=== PATIENT | male | born 1935 | race Caucasian/White ===

== ENCOUNTER 2016-11-30 08:17 | Emergency (ER) | payer OTHER ==
[2016-11-30 08:34] VITALS: RESP 18; TEMP 98.2; O2SAT 95
--- NOTE | 2016-11-30 08:47 | EDPHY ---
H & P Stated Complaint: cough and freq urination since last pm Time Seen by Provider: 11/30/16 08:33 HPI/ROS: CHIEF COMPLAINT: Up all night, frequent urination, cough HISTORY OF PRESENT ILLNESS: This is a 81-year-old gentleman, very pleasant, presenting with his with concerns regarding a cough which started yesterday. Patient states he was up all night last night with frequent urination which is unusual for him as well as a cough. He reports feeling short of breath when he laid down flat. He has had a cough for 24 hours. No sputum production. Patient describes shortness of breath only when lying flat. No dyspnea on exertion. No chest pain. Recently flew here from [place], and also had a flight from [place] earlier in the week. No upper respiratory infection symptoms. No runny nose. Her possibly a slight hoarse voice. No fever. No sputum production. No hematuria. No dysuria. No urinary tension. No vomiting or diarrhea. No headache or lightheadedness. REVIEW OF SYSTEMS: Aside from elements discussed in the HPI, a comprehensive 10-point review of systems was reviewed and is negative. PAST MEDICAL HISTORY: Hypertension. Prostate cancer with ablation. Denies diabetes. No history of coronary artery disease. No history of PEs. Noted to be bradycardic SOCIAL HISTORY: Here with his . VITAL SIGNS Reviewed by me. GENERAL: Well-developed, well-nourished, pleasant. No visible respiratory distress. Occasional dry cough. HEENT: Atraumatic. Eyes: No icterus, no injection. Mouth: moist mucous membranes. No erythema or lesions. Neck: supple with no adenopathy. LUNGS: Clear to auscultation bilaterally, no wheezes, rhonchi or rales. CARDIAC: Bradycardic. Slightly irregular. No murmurs. ABDOMEN: Soft, nontender, nondistended, bowel sounds normal. BACK: No CVA tenderness. EXTREMITIES: No trauma. No edema. Range of motion is normal throughout. NEURO: Alert and oriented, grossly nonfocal. SKIN: Warm and dry, no rash. PSYCHIATRIC: Normal mentation, no agitation. - Personal History Current Tetanus Diphtheria and Acellular Pertussis (TDAP): Yes - Medical/Surgical History Hx Asthma: No Hx Chronic Respiratory Disease: No Hx Diabetes: No Hx Cardiac Disease: No Hx Renal Disease: No Hx Cirrhosis: No Hx Alcoholism: No Hx HIV/AIDS: No Hx Splenectomy or Spleen Trauma: No Other PMH: Prostate ca ablation. HTN - Social History Smoking Status: Former smoker Constitutional: Initial Vital Signs Temperature (C) 36.8 C 11/30/16 08:28 Heart Rate 50 L 11/30/16 08:28 Respiratory Rate 18 11/30/16 08:28 Blood Pressure 154/73 H 11/30/16 08:28 O2 Sat (%) 95 11/30/16 08:28 O2 Delivery Mode Room Air Allergies/Adverse Reactions: No Known Allergies Allergy (Unverified 11/30/16 08:34) Home Medications: Medication Instructions Recorded Diovan 11/30/16 Medical Decision Making - Diagnostics EKG Interpretation: 12-LEAD EKG: Please see the full report in [facility]. My interpretation: Sinus rhythm, multiple PVCs. Imaging Results: Imaging Impressions Chest X-Ray 11/30/16 08:37 Impression: 1. Hazy increased markings right suprahilar region possibly from focus of pneumonitis. 2. Prominent interstitial markings left base. Rule out interstitial infiltrate versus fibrotic streaks. Chest/Thorax CTA 11/30/16 09:48 Impression: 1. No evidence of pulmonary embolus using CT protocol. 2. Tiny probably benign bilateral small pulmonary nodules as detailed above. Consider follow-up noncontrast CT the chest in 12 months to confirm stability and benign features. 3. Possible dilatation of the left renal collecting system versus peripelvic cysts incompletely visualized. If indicated, consider CT abdomen and pelvis. 4. Mild enlargement of the left atrium and left ventricle. Findings discussed with Yeimi Mccormack MD at 11:00 hour, 11/30/2016. Abdomen/Pelvis CT 11/30/16 11:16 Impression: 1. No evidence of urinary tract calculus. Peripelvic cysts are seen associated with the left kidney. 2. No significant abnormality identified within the abdomen and pelvis. 3. Thickened bladder wall with trabeculations and diverticula. There is associated enlarged prostate. Consider bladder outlet obstruction with thickened bladder wall versus cystitis. Findings discussed with Yeimi Mccormack MD at 11:48 hour, 11/30/2016. Imaging: I viewed and interpreted images myself ED Course/Re-evaluation: 81-year-old gentleman presenting with cough as well as frequent urination. Patient describes being unable to sleep well last night secondary to coughing, shortness of breath when lying flat, and frequent urination. No significant infectious symptomatology. Patient's evaluation emergency department included the following: EKG demonstrating sinus rhythm with frequent PVCs. Patient's heart rate is in the mid 50s. CBC and chemistries largely unremarkable. Troponin 0.014. BNP elevated at 1940. Chest x-ray shows no pneumonia, no cardiomegaly, no pulmonary congestion. Patient did have a elevated D-dimer and underwent CT scanning of the chest. No pulmonary embolism. No interstitial edema. Left kidney was visualized on the CT scan of the chest with possibility of obstruction versus a simple cyst. Patient does tell me he has had kidney stones in the past. He has no flank pain on examination however he was having frequent urination all last night. He was sent for CT abdomen pelvis to further evaluate this kidney finding. CT scan abdomen pelvis demonstrates peripelvic cysts, large prostate, thickened bladder wall. This may be consistent with cystitis versus bladder outlet obstruction. Patient was re-examined. He continues with and very occasional cough. Seems to have developed a slight runny nose at this point. Daughters and are at the bedside. Held a long discussion with the patient and his family regarding the evaluation. The understand that he needs follow-up at [facility] within the next 1-2 days for further evaluation of the cough, slight orthopnea, and mildly elevated BNP. Currently there is no signs of peripheral edema and no pulmonary edema noted on a chest x-ray or CT scan of the chest. Patient also understands the need to follow up with Urology for the frequent urination. No overt signs of urinary tract infection in the patient's urinalysis. Will send for culture but will not start antibiotics. Patient understands the need for follow-up with Urology. Discussed the possibility of an early URI developing. Stressed the importance of [id number] medications as well as plenty of fluid and sleep. If patient develops a fever, worsening cough, worsening shortness of breath, peripheral edema, chest pain, urinary complaints worsening, dysuria, back pain, or the hematuria he will return to the emergency department. Differential Diagnosis: Differential diagnosis for the patient's shortness of breath was considered including but not limited to pulmonary infectious processes, COPD exacerbation, pulmonary emboli, pulmonary edema, congestive heart failure, and cardiac causes. - Data Points Laboratory Results: Laboratory Results 11/30/16 09:00 11/30/16 09:00 11/30/16 11/30/16 11/30/16 09:35 09:00 09:00 WBC RBC Hgb Hct MCV MCH MCHC RDW Plt Count MPV Neut % (Auto) Lymph % (Auto) [place] % (Auto) Eos % (Auto) Baso % (Auto) Nucleat RBC Rel Count Absolute Neuts (auto) Absolute Lymphs (auto) Absolute Monos (auto) Absolute Eos (auto) Absolute Basos (auto) Absolute Nucleated RBC Immature Gran % Immature Gran # D-Dimer Sodium 141 mEq/L mEq/L (134-144) Potassium 4.0 mEq/L mEq/L (3.5-5.2) Chloride 106 mEq/L mEq/L (97-110) Carbon Dioxide 23 mEq/l mEq/l (22-31) Anion Gap 12 mEq/L mEq/L (8-16) BUN 18 mg/dL mg/dL (7-23) Creatinine 1.0 mg/dL mg/dL (0.7-1.3) Estimated GFR > 60 Glucose 109 mg/dL H mg/dL (70-100) Calcium 8.8 mg/dL mg/dL (8.5-10.4) Troponin I 0.014 ng/mL ng/mL (0.000-0.034) NT-Pro-B Natriuret Pep 1920 pg/mL H pg/mL (0-450) Urine Color YELLOW Urine Appearance CLEAR Urine pH 5.5 (5.0-7.5) Ur Specific [place] 1.010 (1.002-1.030) Urine Protein NEGATIVE (NEGATIVE) Urine Ketones NEGATIVE (NEGATIVE) Urine Blood NEGATIVE (NEGATIVE) Urine Nitrate NEGATIVE (NEGATIVE) Urine Bilirubin NEGATIVE (NEGATIVE) Urine Urobilinogen 1.0 EU EU (0.2-1.0) Ur Leukocyte Esterase NEGATIVE (NEGATIVE) Urine RBC 1-3 /hpf /hpf (0-3) Urine WBC 0-1 /hpf /hpf (0-3) Ur Epithelial Cells 2+ /lpf H /lpf (NONE-1+) Urine Bacteria 1+ /hpf H /hpf (NONE SEEN) Hyaline Casts 25-50 /lpf H /lpf (0-1) Urine Mucus 2+ /lpf H /lpf (NONE-1+) Urine Yeast OCCASIONAL /hpf H /hpf (NONE SEEN) Urine Glucose NEGATIVE (NEGATIVE) 11/30/16 11/30/16 09:00 09:00 WBC 5.25 10^3/uL 10^3/uL (3.80-9.50) RBC 4.37 10^6/uL L 10^6/uL (4.40-6.38) Hgb 14.1 g/dL g/dL (13.7-17.5) Hct 41.4 % % (40.0-51.0) MCV 94.7 fL fL (81.5-99.8) MCH 32.3 pg pg (27.9-34.1) MCHC 34.1 g/dL g/dL (32.4-36.7) RDW 13.6 % % (11.5-15.2) Plt Count 250 10^3/uL 10^3/uL (150-400) MPV 9.6 fL fL (8.7-11.7) Neut % (Auto) 64.5 % % (39.3-74.2) Lymph % (Auto) 21.9 % % (15.0-45.0) [place] % (Auto) 9.5 % % (4.5-13.0) Eos % (Auto) 2.9 % % (0.6-7.6) Baso % (Auto) 0.6 % % (0.3-1.7) Nucleat RBC Rel Count 0.0 % % (0.0-0.2) Absolute Neuts (auto) 3.39 10^3/uL 10^3/uL (1.70-6.50) Absolute Lymphs (auto) 1.15 10^3/uL 10^3/uL (1.00-3.00) Absolute Monos (auto) 0.50 10^3/uL 10^3/uL (0.30-0.80) Absolute Eos (auto) 0.15 10^3/uL 10^3/uL (0.03-0.40) Absolute Basos (auto) 0.03 10^3/uL 10^3/uL (0.02-0.10) Absolute Nucleated RBC 0.00 10^3/uL 10^3/uL (0-0.01) Immature Gran % 0.6 % % (0.0-1.1) Immature Gran # 0.03 10^3/uL 10^3/uL (0.00-0.10) D-Dimer 0.53 ug/mLFEU H ug/mLFEU (0.00-0.50) Sodium Potassium Chloride Carbon Dioxide Anion Gap BUN Creatinine Estimated GFR Glucose Calcium Troponin I NT-Pro-B Natriuret Pep Urine Color Urine Appearance Urine pH Ur Specific [place] Urine Protein Urine Ketones Urine Blood Urine Nitrate Urine Bilirubin Urine Urobilinogen Ur Leukocyte Esterase Urine RBC Urine WBC Ur Epithelial Cells Urine Bacteria Hyaline Casts Urine Mucus Urine Yeast Urine Glucose Departure - Departure Disposition: Home, Routine, Self-Care Clinical Impression: Cough, Orthopnea, Frequency of urination Condition: Good Instructions: Dyspnea (ED) Additional Instructions: 1. The chest CT demonstrates no blood clot in your lungs. No signs of pneumonia. No significant fluid in the lungs. 2. Your laboratory data demonstrates some increase in BNP. This may be a sign of slight heart failure. 3. You should follow up without fail this week with Cardiology. I did discuss your course with Dr. Travis Porter. Please call their office to make an appointment. 4. Please follow up with Dr. Samuel, from Urology, within the week. Your CT scan does demonstrate some enlargement of your prostate and thickening of the bladder wall which may be causing a bladder outlet obstruction. This may be why you need to urinate frequently. 5. The urine has been sent for culture. There is no sign currently of a significant bladder infection, however, the urine culture is pending at this time. 6. If you develop a fever, worsening cough, worsening shortness of breath, peripheral edema, chest pain, urinary complaints worsening, dysuria, back pain, or the hematuria or other concerns, please to the emergency department or seek care urgently. Referrals: Jayla Mccullough [Primary Care Provider] - As per Instructions Franck Patton MD [Medical Doctor] - 2-3 days, call for appt. (Follow up with Dr. Patton or one of his partners within the next several days without fail.) Tu Samuel MD [Medical Doctor] - As per Instructions
--- NOTE | 2016-11-30 08:49 | CPEKG ---
Heart Rate: 63 RR Interval: 952 P-R Interval: 216 QRSD Interval: 104 QT Interval: 408 QTC Interval: 418 P Graff: 17 QRS Graff: 46 T Wave Graff: 81 EKG Severity - ABNORMAL ECG - EKG Impression: SINUS RHYTHM EKG Impression: MULTIPLE VENTRICULAR PREMATURE COMPLEXES Electronically Signed By: Varinder Hood 02-Dec-2016 06:29:22
[2016-11-30 09:09] LABS: % IMMATURE GRANULYOCYTES 0.6 % (0.0-1.1); ABSOLUTE IMMATURE GRANULOCYTES 0.03 10^3/uL (0.00-0.10); ADD DIFF? NO; ADD MORPH? NO; ADD SCAN? NO; ATYPICAL LYMPHOCYTE FLAG 10 (0-99); FRAGMENT RBC FLAG 0 (0-99); HEMATOCRIT 41.4 % (40.0-51.0); HEMOGLOBIN 14.1 g/dL (13.7-17.5); LEFT SHIFT FLG 0 (0-99); LIPEMIA HEMOLYSIS FLAG 90 (0-99); MEAN CELL HEMOGLOBIN 32.3 pg (27.9-34.1); MEAN CELL HEMOGLOBIN CONCENTR. 34.1 g/dL (32.4-36.7); MEAN CELL VOLUME 94.7 fL (81.5-99.8); MEAN PLATELET VOLUME 9.6 fL (8.7-11.7); PLATELET CLUMPS FLAG 0 (0-99); PLATELET COUNT 250 10^3/uL (150-400); RED BLOOD CELL COUNT 4.37 10^6/uL (4.40-6.38); RED CELL DISTRIBUTION WIDTH 13.6 % (11.5-15.2)
[2016-11-30 09:24] LABS: ANION GAP 12 mEq/L (8-16); CALCIUM 8.8 mg/dL (8.5-10.4); CARBON DIOXIDE 23 mEq/l (22-31); CHLORIDE 106 mEq/L (97-110); GLOMERULAR FILTRATION RATE > 60; GLUCOSE 109 mg/dL (70-100); SODIUM 141 mEq/L (134-144)
[2016-11-30 09:40] LABS: TROPONIN I 0.014 ng/mL (0.000-0.034)
[2016-11-30 09:53] LABS: COLOR YELLOW; LEUKOCYTE ESTERASE,URINE NEGATIVE (NEGATIVE); NITRITE,URINE NEGATIVE (NEGATIVE); PH,URINE 5.5 (5.0-7.5)
[2016-11-30] MEDS ORDERED: IOPAMIDOL (ISOVUE 370) 100 ML BTL IV ONE (09:55)
[2016-11-30 10:18] LABS: BACTERIA 1+ /hpf (NONE SEEN); HYALINE CASTS 25-50 /lpf (0-1); MUCUS 2+ /lpf (NONE-1+); WBC,URINE 0-1 /hpf (0-3); YEAST OCCASIONAL /hpf (NONE SEEN)
[2016-11-30 13:03] VITALS: BP 186/86; PULSE 53
== END 2016-11-30 12:25 | disposition home or self-care (01) ==
LOC: CED 08:17
DX: R05 Cough (principal); R06.01 Orthopnea; R35.0 Frequency of micturition; I10 Essential (primary) hypertension; Z85.46 Personal history of malignant neoplasm of prostate; Z87.891 Personal history of nicotine dependence
CPT/HCPCS: 71020; 71275; 74176; 93005; 99285; Q9967; 80048-PO; 81003-PO; 81015-PO; 83880-PO; 84484-PO; 85025-PO; 85378-PO

== ENCOUNTER 2017-03-11 15:14 | Emergency (ER) | payer OTHER ==
--- NOTE | 2017-03-11 15:37 | EDPHY ---
H & P Time Seen by Provider: 03/11/17 15:26 HPI/ROS: CHIEF COMPLAINT: Dry cough HISTORY OF PRESENT ILLNESS: The patient is an 81-year-old man who comes to the ER complaining of a dry cough for the last 7 days. He states that he thought he was getting better but tried to sit through his granddaughter's play at school today and kept coughing. He has not had a fever. He does not feel short of breath. He denies chest pain, no lightheadedness nausea vomiting. He was seen here for cough in October and at that time had a CT angio of his chest as well as a CT of his abdomen and pelvis all of which were unremarkable. He was recommended for repeat CT scan in 1 year for some unusual nodules. He does not smoke. He has had slight runny nose. REVIEW OF SYSTEMS: Constitutional: denies: chills, fever, recent illness, recent injury EENTM: See HPI Respiratory: See HPI Cardiac: denies: chest pain, irregular heart rate, lightheadedness, palpitations Gastrointestinal/Abdominal: denies: abdominal pain, diarrhea, nausea, vomiting, blood streaked stools Genitourinary: denies: dysuria, frequency, hematuria, pain Musculoskeletal: denies: joint pain, muscle pain Skin: denies: lesions, rash, jaundice, bruising Neurological: denies: headache, numbness, paresthesia, tingling, dizziness, weakness Hematologic/Lymphatic: denies: blood clots, easy bleeding, easy bruising Immunologic/allergic: denies: HIV/AIDS, transplant EXAM: GENERAL: Well-appearing, well-nourished and in no acute distress. HEAD: Atraumatic, normocephalic. EYES: Pupils equal round and reactive to light, extraocular movements intact, sclera anicteric, conjunctiva are normal. ENT: Slight runny nose, fluid behind tympanic membranes, no erythema. oropharynx clear without exudates. Moist mucous membranes. NECK: Normal range of motion, supple without lymphadenopathy or JVD. LUNGS: Breath sounds clear to auscultation bilaterally and equal. No wheezes rales or rhonchi. HEART: Regular rate and rhythm without murmurs, rubs or gallops. ABDOMEN: Soft, nontender, normoactive bowel sounds. No guarding, no rebound. No masses appreciated. BACK: No CVA tenderness, no spinal tenderness, step-offs or deformities EXTREMITIES: Normal range of motion, no pitting or edema. No clubbing or cyanosis. NEUROLOGICAL: Cranial nerves II through XII grossly intact. Normal speech, normal gait. 5/5 strength, normal movement in all extremities, normal sensation PSYCH: Normal mood, normal affect. SKIN: Warm, dry, normal turgor, no visible rashes or lesions. Source: Patient, Old records - Medical/Surgical History Hx Asthma: No Hx Chronic Respiratory Disease: No Hx Diabetes: No Hx Cardiac Disease: No Hx Renal Disease: No Hx Cirrhosis: No Hx Alcoholism: No Hx HIV/AIDS: No Hx Splenectomy or Spleen Trauma: No Other PMH: Prostate ca ablation. HTN - Family History Significant Family History: No pertinent family hx - Social History Smoking Status: Former smoker Alcohol Use: None Constitutional: Initial Vital Signs Temperature (C) 36.6 C 03/11/17 15:30 Heart Rate 61 03/11/17 15:30 Respiratory Rate 20 03/11/17 15:30 Blood Pressure 172/81 H 03/11/17 15:30 O2 Sat (%) 94 03/11/17 15:30 O2 Delivery Mode Room Air Allergies/Adverse Reactions: No Known Allergies Allergy (Verified 03/11/17 15:27) Home Medications: Medication Instructions Recorded Diovan 11/30/16 Amlodipine Besylate 03/11/17 Bisabolol 03/11/17 Medical Decision Making ED Course/Re-evaluation: Patient is well appearing. His vital signs are stable. He has a slightly runny nose and bilateral ear effusions and cough consistent with postnasal drip. He denies chest pain or shortness of breath. He states that overall he is improving over the last few days. We did discuss options to help control his cough including nasal steroids. He cannot take the decongestants because of difficult to control high blood pressure. He has been taking over-the- counter cough drops and chicken soup etc. In the end he preferred not to do any testing or "waste my time ". This likely represents a mild upper respiratory tract infection with postnasal drip. We discussed expected course and indications for returning. Differential Diagnosis: Partial list of the Differential diagnosis considered include but were not limited to; upper respiratory tract infection, postnasal drip, cough and although unlikely based on the history and physical exam, I also considered pneumonia, bronchitis, asthma, CHF, acute coronary disease. I discussed these differential diagnoses and the plan with the patient as well as the usual and expected course. The patient understands that the diagnosis is provisional and that in medicine we are not always correct and that further workup is often warranted. Usual and customary warnings were given. All of the patient's questions were answered. The patient was instructed to return to the emergency department should the symptoms at all worsen or return, otherwise to followup with the physician as we discussed. Departure - Departure Disposition: Home, Routine, Self-Care Clinical Impression: Postnasal drip, Cough Condition: Fair Instructions: Postnasal Drip (DC) Referrals: Jayla Mccullough [Primary Care Provider] - As per Instructions
[2017-03-11 15:38] VITALS: TEMP 97.9; O2SAT 94
[2017-03-11 15:41] VITALS: BP 176/81; PULSE 55; RESP 18
== END 2017-03-11 15:45 | disposition home or self-care (01) ==
LOC: CED 15:14
DX: R09.82 Postnasal drip (principal); I10 Essential (primary) hypertension; Z85.46 Personal history of malignant neoplasm of prostate; Z87.891 Personal history of nicotine dependence